=== PATIENT | female | born 1980 | race Caucasian/White ===

== ENCOUNTER 2018-11-14 07:05 | Emergency (ER) | payer OTHER, MEDICAID ==
[~2018-11-14] VITALS: Ht 165.1 cm; Wt 63.5 kg
[2018-11-14 07:09] VITALS: BP 155/101
[2018-11-14 07:18] VITALS: BP 155/101
--- NOTE | 2018-11-14 07:19 | NUR ---
PATIENT BIB [employer]. PATIENT EXAMINED BY . PATIENT MEDICALLY CLEARED AND RELEASED IN CUSTODY IN STABLE CONDITION. ORIGINAL PRE-BOOK FORM GIVEN TO OFFICER .
== END 2018-11-14 07:19 ==
LOC: MED 07:05
DX: Z02.89 Encounter for other administrative examinations (principal)
CPT/HCPCS: 99283

== ENCOUNTER 2019-02-02 22:49 | Inpatient (IN) | payer OTHER, MEDICAID ==
[~2019-02-02] VITALS: Ht 162.6 cm; Wt 77.1 kg
[2019-02-02 22:56] VITALS: BP 128/90
--- NOTE | 2019-02-02 23:00 | NUR ---
RENO GARCIA. TAKEN TO BED 1
--- NOTE | 2019-02-02 23:05 | NUR ---
PT IS A 38 Y/O FEMALE WHO PRESENTS TO THE ED C/O RASH. PER PATIENT HAS SYMPTOMS OF RASH X4 MONTHS. PT REPORTS RASH TO BACK OF THE NECK. PT REPORTS 7/10 ACHING NECK PAIN THAT DOES NOT RADIATE. POSSIBLE HEAD LICE. PT DENIES CP, SOB, N/V/D. PT AWAKE AND ALERT, RR EVEN/UNLABORED. PT REPOSITIONED FOR COMFORT, BED IN LOWEST POSITION. RUBEN STAPLETON NOTIFIED. WILL CONTINUE TO MONITOR. PMH--HYPOTHYROID, MENTAL ISSUES NKA Addendum: 02/03/19 at 0102 by [email or web address] PT IS A 38 Y/O FEMALE WHO PRESENTS TO THE ED C/O RASH. PER PATIENT HAS SYMPTOMS OF RASH X4 MONTHS. PT REPORTS RASH TO BACK OF THE NECK. PT REPORTS 7/10 ACHING NECK PAIN THAT DOES NOT RADIATE. POSSIBLE HEAD LICE. PT DENIES CP, SOB, N/V/D. PT AWAKE AND ALERT, RR EVEN/UNLABORED. PT REPOSITIONED FOR COMFORT, BED IN LOWEST POSITION. RUBEN STAPLETON NOTIFIED. WILL CONTINUE TO MONITOR. PMH--HYPOTHYROID, MENTAL ISSUES (DEPRESSION, ANXIETY, PSYCHOSIS), MITRAL VALVE PROLAPSE NKA
--- NOTE | 2019-02-02 23:51 | NUR ---
Dr. Hoang examining patient.
[2019-02-03] MEDS ORDERED: NACL 0.9% 1,000 ML IV ONE (00:10)
[2019-02-03] MEDS ORDERED: PERMETHRIN 1% 60 ML BTL TP ONE (00:15)
[2019-02-03] MEDS ORDERED: PERMETHRIN 5% 60 GM TUBE TP ONE (00:15)
[2019-02-03 00:49] LABS: BASOPHILS # (AUTO) 0.1 K/uL (0.00-0.22); BASOPHILS % (AUTO) 1.2 % (0.0-2.0); EOSINOPHILS # (AUTO) 0.8 K/uL (0-0.4); HEMATOCRIT 30.4 % (36-48); HEMOGLOBIN 9.5 g/dL (12.0-16.0); LYMPHOCYTES # (AUTO) 1.5 K/uL (2.5-16.5); LYMPHOCYTES % (AUTO) 19.1 % (20.5-51.1); MEAN CORPUSCULAR HEMOGLOBIN 23 pg (27-31); MEAN CORPUSCULAR HGB CONC 31 g/dL (33-37); MEAN CORPUSCULAR VOLUME 73.2 fL (80-94); MONOCYTES # (AUTO) 0.6 K/uL (0.8-1.0); MONOCYTES % (AUTO) 8.1 % (1.7-9.3); NEUTROPHILS # (AUTO) 4.7 K/uL (1.8-7.7); NEUTROPHILS % (AUTO) 61.6 % (42.2-75.2); PLATELET COUNT (AUTO) 329 K/uL (140-450); RED BLOOD CELL COUNT(AUTO) 4.16 MIL/uL (4.20-5.40); RED CELL DISTRIBUTION WIDTH 16.4 % (11.6-13.7); WHITE BLOOD COUNT (AUTO) 7.6 K/uL (4.8-10.8)
--- NOTE | 2019-02-03 00:50 | NUR ---
ASSISTED PATIENT IN BED BATH WITH JESUS COTTO.
--- NOTE | 2019-02-03 01:00 | NUR ---
ELIMITE AND NIX CREAM UNAVAILABLE AT THIS TIME, DUE TO PHARMACY BEING CLOSED PER BRICK OFF BEARER.
[2019-02-03 01:07] LABS: CREATININE 0.8 mg/dL (0.6-1.3)
[2019-02-03 01:16] LABS: ALBUMIN 3.4 g/dL (3.4-5.0); TOTAL BILIRUBIN 0.2 mg/dL (0.0-1.0)
--- NOTE | 2019-02-03 01:50 | NUR ---
ALL RESULTS BACK AND NOTED BY ERMD AND FOR ADMISSION
[2019-02-03] MEDS ORDERED: NACL 0.9% 1,000 ML IV SCH (02:02)
[2019-02-03] MEDS ORDERED: ACETAMINOPHEN 325 MG TAB PO PRN (02:05)
[2019-02-03] MEDS ORDERED: ONDANSETRON 4 MG/2 ML VIAL IM/IVP PRN (02:05)
[2019-02-03 02:19] LABS: APPEARANCE,URINE CLEAR (CLEAR); BILIRUBIN,URINE NEGATIVE (NEGATIVE); BLOOD, URINE NEGATIVE (NEGATIVE); COLOR,URINE YELLOW (YELLOW); LEUKOCYTE ESTERASE ,URINE NEGATIVE (NEGATIVE); NITRITE, URINE NEGATIVE (NEGATIVE); UGLUCOSE NEGATIVE (NEGATIVE)
[2019-02-03 02:22] LABS: PROTHROMBIN TIME 9.8 secs (10.8-13.4)
[2019-02-03 02:28] LABS: BARBITURATE, URINE NEG. ng/ml (NEG <=200); BENZODIAZEPINE, URINE NEG. ng/mL (NEG <=200); CANNABINOID, URINE NEG. ng/mL (NEG <=50); COCAINE, URINE NEG. ng/mL (NEG <=300); OPIATE, URINE NEG. ng/mL (NEG <=2000); PHENCYCLIDINE SCREEN,URINE NEG. ng/mL (NEG <=25)
--- NOTE | 2019-02-03 02:30 | NUR ---
ADMITTED THIS 38 YEAR OLD FEMALE FROM ER PER WHEELCHAIR WITH CC OF RASH AND HEAD LICE, AMBULATED TO BED WITH STEADY GAIT, ASSESSMENT DONE, VITAL SIGNS STABLE, DENIES PAIN, AAOX4, ABLE TO MAKE NEEDS KNOWN, PUT ON CONTACT ISOLATION, BOUFFANT CAP IN PLACE, RASH NOTED TO POSTERIOR NECK AND SHOULDER, VISUAL HEAD INSPECTION DONE WITH DR HINOJOSA, POSITIVE HEAD LICE NOTED, PLAN OF CARE DISCUSSED, SAFETY MEASURES IN PLACE, CALL LIGHT WITHIN REACH.
[2019-02-03 02:40] VITALS: BP 132/71
[2019-02-03 02:44] LABS: MAGNESIUM 2.2 mg/dL (1.8-2.4); PHOSPHORUS 3.9 mg/dL (2.5-4.9)
--- NOTE | 2019-02-03 02:50 | NUR ---
Patient will be admitted to care of DR. GIRON. Admited to MS]. Will go to [id number] Belongings list completed. Report to LAUREN HOLLINGSWORTH
--- NOTE | 2019-02-03 02:55 | NUR ---
PT REFUSED TO HAVE NARES SWAB FOR MRSA TEST, DR HINOJOSA AT BEDSIDE EXPLAINED HOSPITAL PROTOCOL, RISK AND BENEFITS BUT PT STILL REFUSING, WILL TRY AGAIN LATER.
--- NOTE | 2019-02-03 03:50 | NUR ---
PT AMBULATED TO BR WITH STEADY GAIT, VOIDED FREELY, ALL NEEDS ATTENDED.
--- NOTE | 2019-02-03 06:15 | NUR ---
PT REFUSED AM LAB DRAW, RISK AND BENEFITS EXPLAINED, PT STATED "I DON'T NEED MORE TEST", WILL NOTIFY RESIDENT ON DUTY, PT REQUESTING FOR BREAKFAST, MADE AWARE OF SCHEDULED MEAL TIME, OFFERED SANDWICH BUT PREFER ORANGE JUICE ONLY, TOLERATED WELL.
[2019-02-03] MEDS ORDERED: PERMETHRIN 5% 60 GM TUBE TP SCH ×2 (07:00→11:00)
--- NOTE | 2019-02-03 07:00 | NUR ---
DUE ELIMITE NOT AVAILABLE YET, AWAITING PHARMACY TO BRING THE MEDICATION, WILL ENDORSE TO AM NURSE.
--- NOTE | 2019-02-03 07:08 | NUR ---
PT AWAKE, NO SIGNS OF DISTRESS, REPORT GIVEN TO EDEL CERVANTES FOR CONTINUITY OF CARE.
--- NOTE | 2019-02-03 07:10 | NUR ---
RECEIVED REPORT FROM BLAST FURNACE KEEPER ROY FOR CONTINUITY OF CARE. PT IN STABLE CONDITION. RESPIRATIONS EVEN AND UNLABORED. IV INTACT AND PATENT. BED IN LOW POSITION. CALL LIGHT AT BEDSIDE. WILL CONTINUE TO MONITOR.
[2019-02-03 08:00] VITALS: BP 126/76
[2019-02-03] MEDS ORDERED: FERROUS GLUCONATE 324 MG TAB PO SCH (08:00)
[2019-02-03] MEDS ORDERED: ASCORBIC ACID 500 MG TAB PO SCH (09:00)
--- NOTE | 2019-02-03 09:02 | NUR ---
PATIENT HAS BEEN SCREENED AND CATEGORIZED HIGH NUTRITION RISK. PATIENT WILL BE SEEN WITHIN 1-2 DAYS OF ADMISSION. 02/03/19-02/04/[address]
--- NOTE | 2019-02-03 09:44 | NUR ---
PT LYING IN BED WATCHING TV AT THIS TIME. PT IN STABLE CONDITION. RESPIRATIONS EVEN AND UNLABORED. BED IN LOW POSITION. CALL LIGHT AT BEDSIDE. WILL CONTINUE TO MONITOR.
--- NOTE | 2019-02-03 11:00 | NUR ---
CM ATTEMPTED TO MEET WITH PATIENT AT BEDSIDE, BUT PATIENT IS TOO DROWSY TO ANSWER QUESTIONS AND REQUESTED TO JUST COME BACK.
--- NOTE | 2019-02-03 11:37 | NUR ---
PT IN RESTROOM AT THIS TIME. WILL CONTINUE TO MONITOR.
--- NOTE | 2019-02-03 13:11 | NUR ---
PT LYING IN BED IN STABLE CONDITION. RESPIRATIONS EVEN AND UNLABORED. BED IN LOW POSITION. CALL LIGHT AT BEDSIDE. WILL CONTINUE TO MONITOR.
[2019-02-03] MEDS ORDERED: PERMETHRIN 1% 60 ML BTL TP SCH (14:00)
--- NOTE | 2019-02-03 14:44 | NUR ---
02/03/19 RD INITIAL ASSESSMENT COMPLETED PLEASE REFER TO NUTRITION ASSESSMENT UNDER CARE ACTIVITY FOR ESTIMATED NUTRITIONAL NEEDS. 1. CONTINUE REGULAR DIET TOLERATED 2. ENCOURAGED PT TO CHOOSE BALANCED MEALS, RICH IN IRON AND VITAMIN C AT [employer] [address]. RD TO FOLLOW-UP 5-7 DAYS, LOW RISK ALVARADO DUENAS RD
--- NOTE | 2019-02-03 15:45 | NUR ---
PT OFFERED TO HAVE LICE TREATMENT. PT REFUSED THE TREATMENT STATING IT WAS TOO MUCH.
--- NOTE | 2019-02-03 16:29 | NUR ---
ID BAND REMOVED. IV REMOVED, LUMEN INTACT. PT OFFERED CLEAN CLOTHES, PT DENIED CLEAN CLOTHES AT THIS TIME.
--- NOTE | 2019-02-03 16:30 | NUR ---
PT AMA AT THIS TIME. DR. PRIETO EXPLAINED TO PT RISK FOR LEAVING AGAINST DOCTORS ORDERS. PT VERBALIZED WANTING TO LEAVE. PT IN STABLE CONDITION AT THIS TIME. SECURITY ESCORTED PT OUT OF HOSPITAL.
[2019-02-03] MEDS ORDERED: DIVALPROEX 500 MG TABEC PO SCH (21:00)
[2019-02-03] MEDS ORDERED: OLANZapine 5 MG TAB PO SCH (21:00)
[2019-02-04] MEDS ORDERED: FERROUS SULFATE 325 MG TABEC PO SCH (08:00)
[2019-02-04] MEDS ORDERED: OLANZapine 5 MG TAB PO SCH (09:00)
== END 2019-02-03 17:36 | disposition left against medical advice (07) | DRG 607 ==
LOC: MED 22:49 → MTU 02-03 02:02
PROVIDERS: ADMIT General Practice; ATTEND General Practice
DX: B85.0 Pediculosis due to Pediculus humanus capitis (principal); F41.9 Anxiety disorder, unspecified; E03.9 Hypothyroidism, unspecified; R62.7 Adult failure to thrive; F32.9 Major depressive disorder, single episode, unspecified; D64.9 Anemia, unspecified; Z53.21 Procedure and treatment not carried out due to patient leaving prior to being seen by health care provider; F25.9 Schizoaffective disorder, unspecified; F12.99 Cannabis use, unspecified with unspecified cannabis-induced disorder; Z59.0 Homelessness; Z68.29 Body mass index [BMI] 29.0-29.9, adult
CPT/HCPCS: 36415; 80053; 80305; 81003; 82150; 83690; 83735; 84100; 84436; 84443; 85025; 85610; 85730; 93925; 93970; 99285; J1644; J7030; Q0092